=== PATIENT | male | born 2000 | race Caucasian/White ===

== ENCOUNTER 2023-12-27 20:56 | Emergency (ER) | payer MEDICAID ==
[~2023-12-27] VITALS: Ht 177.8 cm; Wt 65.8 kg
[2023-12-27 21:04] VITALS: BP_SYST 121; PULSE 82; RESP 16; TEMP 98.3; O2SAT 99
[2023-12-27] MEDS: ACETAMINOPHEN 500 MG TABLET PO ONE (22:31)
[2023-12-27] MEDS: KETOROLAC TROMETHAMINE 30 MG VIAL IM ONE (22:36)
== END 2023-12-27 23:53 | disposition home or self-care (01) ==
LOC: SED 20:56
DX: S62.112A Displaced fracture of triquetrum [cuneiform] bone, left wrist, initial encounter for closed fracture (principal); V00.131A Fall from skateboard, initial encounter; Y93.51 Activity, roller skating (inline) and skateboarding; Y92.89 Other specified places as the place of occurrence of the external cause; Y99.8 Other external cause status
CPT/HCPCS: 99283; 73100; 29125; 96372; J1885